=== PATIENT | male | born 1950 | race Caucasian/White ===

== ENCOUNTER 2017-08-08 14:03 | Emergency (ER) | payer OTHER ==
[~2017-08-08] VITALS: Ht 180.3 cm; Wt 124.7 kg
--- NOTE | ~2017-08-08 | EKG ---
[address] [place] [address] ELECTROCARDIOGRAM REPORT Name: IWONA BEST Room #: [facility] CHANCE Rahman#: [id number] Admission: 08/08/17 Attend Phys: Discharge: 08/08/17 Date of : 52 Report #: [id number] THIS REPORT FOR: //name// [facility] ED Test Date: 2017-08-08 Test Time: 14:14:50 Pat Name: IWONA BEST Department: Room: Gender: Oncology Specialist: [facility] : 1950 Requested By: Ángel Garcia Order Number: [id number] MD: Mark Anthony Leonardo Measurements Intervals [place] Rate: 74 P: [place]: QRS: 32 QRSD: 107 T: 38 QT: 365 QTc: 405 Interpretive Statements Atrial fibrillation RSR' in V1 or V2, right VCD No previous ECG available for comparison Electronically Signed On 08-09-2017 8:59:03 [employer]MIC[employer] OPERATOR by Mark Anthony Leonardo [email or web address] <ELECTRONICALLY SIGNED> By: Mark Anthony Leonardo MD, [facility] 08/09/17 0859 1414 1414 Mark Anthony Leonardo MD, FACC /EPI
[2017-08-08 14:46] LABS: ABSOLUTE NEUTROPHILS 4.1 thou/uL (1.4-8.2); BASOPHILS 0.5 % (0.0-2.0); EOSINOPHILS 1.9 % (0.0-3.0); HEMATOCRIT 40.1 % (42.0-52.0); HEMOGLOBIN 13.7 gm/dL (14.0-18.0); LYMPHOCYTES 21.5 % (24.0-44.0); MCH 34.7 pg (26.0-34.0); MCHC 34.2 g/dL (28.0-37.0); MCV 101.6 fL (80.0-100.0); MONOCYTES 7.5 % (1.0-8.0); PLATELET COUNT 160 thou/uL (150-400); POLYS 68.6 % (36.0-66.0); RBC 3.95 mil/uL (4.50-6.00); RDW 12.8 % (10.5-14.5); WBC 5.9 thou/uL (4.0-11.0)
[2017-08-08 14:55] LABS: ANION GAP 10 mmol/L (7-16); BUN 38 mg/dL (7-18); CALCIUM 8.8 mg/dL (8.5-10.1); CHLORIDE 105 mmol/L (98-107); CO2 21 mmol/L (21-32); CREATININE 2.4 mg/dL (0.7-1.3); GLUCOSE 122 mg/dL (74-106); POTASSIUM 5.1 mmol/L (3.5-5.1); SODIUM 136 mmol/L (136-145)
[2017-08-08 15:01] LABS: APTT 27.7 Seconds (24.5-32.8)
[2017-08-08 15:03] LABS: ALBUMIN 3.3 g/dL (3.4-5.0); SGOT 32 U/L (15-37); SGPT 56 U/L (30-65); TOTAL BILIRUBIN 0.2 mg/dL (<0.1-1.0); TOTAL PROTEIN 7.2 g/dL (6.4-8.2); TROPONIN-I < 0.04 ng/mL (<0.06)
[2017-08-08] MEDS ORDERED: ASPIRIN325 PO (15:11)
[2017-08-08] MEDS ORDERED: LASIX 20 MG TAB20 MG PO (15:12)
[2017-08-08] MEDS ORDERED: NORCO 5-325 TA1 EACH PO (15:12)
[2017-08-08] MEDS ORDERED: LISINOPRIL10 MG PO (15:12)
[2017-08-08] MEDS ORDERED: IBUPROFEN 800800 M1 PO (15:12)
[2017-08-08] MEDS ORDERED: MELATONIN3 MG PO (15:13)
[2017-08-08] MEDS ORDERED: LOPRESSOR100 M1 PO (15:13)
[2017-08-08] MEDS ORDERED: ATIVAN1 MG PO (15:13)
[2017-08-08] MEDS ORDERED: XARELTO20 MG PO ×2 (15:15→16:00)
[2017-08-08 15:16] LABS: D-DIMER 0.38 ug/mLFEU (0.19-0.50)
[2017-08-08] MEDS ORDERED: AMOXICILLIN 50500 M1 PO (15:35)
[2017-08-08] MEDS ORDERED: PREDNISONE 20 M20 MG PO (15:35)
[2017-08-08] MEDS ORDERED: VENTOLIN HFA 1818 GM INH (15:35)
== END 2017-08-08 16:16 | disposition home or self-care (01) ==
LOC: ER 14:03
PROVIDERS: Emergency Medicine
DX: J20.9 Acute bronchitis, unspecified (principal); J44.0 Chronic obstructive pulmonary disease with (acute) lower respiratory infection; N20.0 Calculus of kidney; N18.9 Chronic kidney disease, unspecified; J98.6 Disorders of diaphragm; Z88.8 Allergy status to other drugs, medicaments and biological substances; Z88.6 Allergy status to analgesic agent

== ENCOUNTER 2021-02-05 19:37 | Inpatient (IN) | payer OTHER ==
[~2021-02-05] VITALS: Ht 180.3 cm; Wt 98.7 kg
[~2021-02-05 19:37] MED LIST: AMOXICILLIN 50500 M1 PO; ASPIRIN325 PO; ATIVAN1 MG PO; IBUPROFEN 800800 M1 PO; LASIX 20 MG TAB20 MG PO; LISINOPRIL10 MG PO; LOPRESSOR100 M1 PO; MELATONIN3 MG PO; NORCO 5-325 TA1 EACH PO; PREDNISONE 20 M20 MG PO; VENTOLIN HFA 1818 GM INH; XARELTO20 MG PO
[2021-02-05 19:58] VITALS: BP 143/76
[2021-02-05] MEDS ORDERED: ALLOPURINOL 10100 M3 PO (20:47)
[2021-02-05] MEDS ORDERED: POTASSIUM CITR15 MEQ PO (20:48)
[2021-02-05] MEDS ORDERED: XARELTO20 MG PO (20:49)
[2021-02-05] MEDS ORDERED: VITAMIN D310 MC2 PO (20:50)
[2021-02-05] MEDS ORDERED: NORCO5 PO (20:50)
[2021-02-05] MEDS ORDERED: SENNA PLUS TAB1 EACH PO (20:50)
[2021-02-05] MEDS ORDERED: MELATONIN3 M1 PO (20:51)
[2021-02-05] MEDS ORDERED: TOPROL XL100 MG PO (20:51)
[2021-02-05 20:59] LABS: ABSOLUTE NEUTROPHILS 8.3 thou/uL (1.4-8.2); BASOPHILS 0.5 % (0.0-2.0); EOSINOPHILS 0.6 % (0.0-3.0); HEMATOCRIT 29.1 % (42.0-52.0); HEMOGLOBIN 9.9 gm/dL (14.0-18.0); LYMPHOCYTES 16.1 % (24.0-44.0); MCH 36.6 pg (26.0-34.0); MCHC 33.9 g/dL (28.0-37.0); MCV 107.8 fL (80.0-100.0); MONOCYTES 7.9 % (1.0-8.0); PLATELET COUNT 210 thou/uL (150-400); POLYS 74.9 % (36.0-66.0); RBC 2.69 mil/uL (4.50-6.00); RDW 13.5 % (10.5-14.5); WBC 11.1 thou/uL (4.0-11.0)
[2021-02-05 21:12] LABS: ANION GAP 6 mmol/L (7-16); BUN 64 mg/dL (7-18); CALCIUM 8.3 mg/dL (8.5-10.1); CHLORIDE 111 mmol/L (98-107); CO2 25 mmol/L (21-32); CREATININE 1.2 mg/dL (0.7-1.3); GLUCOSE 106 mg/dL (74-106); POTASSIUM 4.8 mmol/L (3.5-5.1); SODIUM 142 mmol/L (136-145)
[2021-02-05 21:22] LABS: TROPONIN-I <0.06 ng/mL (<0.06)
[2021-02-05 21:40] LABS: MACROCYTES 2+
[2021-02-05 21:41] LABS: POLYCHROMASIA SLIGHT
--- NOTE | 2021-02-06 07:31 | EKG ---
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
[2021-02-06 09:35] LABS: HEMATOCRIT 25.9 % (42.0-52.0); HEMOGLOBIN 8.7 gm/dL (14.0-18.0); MCH 36.7 pg (26.0-34.0); MCHC 33.6 g/dL (28.0-37.0); MCV 109.3 fL (80.0-100.0); RBC 2.37 mil/uL (4.50-6.00); WBC 8.2 thou/uL (4.0-11.0)
[2021-02-06 09:42] LABS: CALCIUM 8.3 mg/dL (8.5-10.1); CREATININE 1.2 mg/dL (0.7-1.3); OBSERVED RETIC COUNT 2.36 % (0.6-2.6); POTASSIUM 4.3 mmol/L (3.5-5.1)
[2021-02-06 09:46] LABS: % SATURATION 45 % (20-39); IRON 124 ug/dL (65-175); TIBC 273 ug/dL (250-450)
[2021-02-06 10:13] LABS: FOLIC ACID 18.3 ng/mL (8.6-58.9)
[2021-02-06 11:43] VITALS: BP 103/51
[2021-02-06 15:17] VITALS: BP 135/53
[2021-02-06 15:24] VITALS: BP 135/53
[2021-02-06] MEDS ORDERED: DULOXETINE HCL60 MG PO (15:37)
--- NOTE | 2021-02-06 17:37 | NUR ---
PATIENT ARRIVED TO UNIT AT APPROX 1530. PATIENT WAS ORIENTED TO ROOM AND GIVEN CALL LIGHT. PATIENT WAS OBSERVED WALKING FROM BED TO CHAIR WITH NO ISSUES. ADMISSION HX. AND EDUCATION COMPLETE. IV PROTONIX RESTARTED. PATIENT IS A&OX4 AND HAS AT BEDSIDE. ENDORSED TO CHARGE NURSE TO COMPLETE ADMISSIONS ASSESSMENT. PATIENT VOICED PAIN AND ASKED FOR TYLENOL. HOSPITALISTS CALLED BUT UNSUCCESSFULLY REACHED.
[2021-02-06 20:15] VITALS: BP 131/70
--- NOTE | 2021-02-07 05:21 | NUR ---
PT SLEPT MOST OF THE NIGHT WHILE ON HIS HOME CPAP. RESPIRATIONS EVEN AND UNLABORED. VSS. AFEBRILE. NO S/S BLEEDING NOTED. PAIN MEDICATION GIVEN FOR C/O BACK PAIN. UP AD DEJAH TO BTR WTIH STEADY GAIT. IVF INFUSING ORDERED. PROGRESSING TOWARD POC GOALS. WILL MONITOR FURTHER.
[2021-02-07 07:25] VITALS: BP 105/60
--- NOTE | 2021-02-07 08:39 | NUR ---
RD consulted, specific reason not specified. Admit with GIB. EGD showing hiatal hernia, with gastric ulcer. no further bleed. Started on pantoprazole and diet advancing with tolerance. BMI 30. Presents low nutrition risk
[2021-02-07 13:43] LABS: HEMATOCRIT 22.1 % (42.0-52.0); HEMOGLOBIN 7.5 gm/dL (14.0-18.0)
--- NOTE | 2021-02-07 16:54 | NUR ---
PT IS A&O*4, CONTINUE OXYGEN LEVEL MONITOR AT BEDSITE, IV FLUID NS@ 80ML/HR. STOOL SOFTNER GIVEN IN THE MORNING, EDUCATED PT FOR USING BEDSIDE COMMODE AND ASK NURSE TO ASSESS HIS STOOL COLOR AND FURTHER TEST MIGHT NEEDED. NO BM THIS SHIFT AND WILL PASS ALONG TO PV INSTALLER TECH. CHRONIC BACK PAIN RELIEFED BY ONE DOSE TYLENOL. GET UP BY DEJAH. NSR ON TELE. Hgb 7.5 TODAY. WILL KEEP MONITOR PATIENT'S VS, LAB AND SAFETY UNTIL SHIFT CHANGE.
[2021-02-07 19:31] VITALS: BP 111/56
[2021-02-08] VITALS (9 sets, daily range): BP systolic 100–143; BP diastolic 52–67
[2021-02-08 03:17] LABS: MCV 108.9 fL (80.0-100.0)
[2021-02-08 03:20] LABS: MCH 38.3 pg (26.0-34.0); MCHC 35.2 g/dL (28.0-37.0); RBC 1.68 mil/uL (4.50-6.00); RDW 13.6 % (10.5-14.5); WBC 5.4 thou/uL (4.0-11.0)
[2021-02-08 03:29] LABS: HEMATOCRIT 18.3 % (42.0-52.0); HEMOGLOBIN 6.4 gm/dL (14.0-18.0)
[2021-02-08 03:42] LABS: ALBUMIN 2.1 g/dL (3.4-5.0); CALCIUM 6.8 mg/dL (8.5-10.1); CREATININE 1.3 mg/dL (0.7-1.3); POTASSIUM 3.3 mmol/L (3.5-5.1); TOTAL BILIRUBIN 0.2 mg/dL (0.2-1.0); TOTAL PROTEIN 4.3 g/dL (6.4-8.2)
--- NOTE | 2021-02-08 04:47 | NUR ---
ASSUMED PT CARE AT 1920. PT IS ALERT AND ORIENTED X4. PT IS A SBA TO THE BR. BP MEDS HELD BECAUSE BP WAS LOW. PT HAS A HEALING FRACTURE TO THE R ARM. PT HAS A MASS AND REDNESS TO THE BACK. PT HGB WAS 7.5 AT THE BEGINNING OF THE SHIFT BUT DROPPED TO 6.4. THE [employer] WAS NOTIFIED AND AN ORDER FOR 1UNIT OF PRBC WAS OBTAINED. PT WAS EDUCATED ON THE NEED FOR BLOOD TRANSFUSION AND CONSENT FORMS WAS SIGNED. PT DENIED ANY FORM OF DIZZINESS OR LIGHT HEADEDNESS. PT WAS RE-EDUCARED ON THE NEED TO USE CALL LIGHT FOR ASSISTAMCE TO THE BR. FALL PREACAUTIONS IN PLACE WITH CALL LIGHT WITHIN REACH. WILL CONTINUE TO MONITOR.
--- NOTE | 2021-02-08 09:21 | PATH ---
[facility] [address] [place] [address] PATHOLOGY RPT PROCEDURE Name: TK BEST Jessica Room #: 459-P ADM IN M.R.#: [id number] Admission: 02/05/21 Date of : 52 Discharge: Report #: [id number] Path Case #: [id number] L[facility] Accession Number: [id number] . 01 Material submitted: . ANTRUM - ANTRUM BX FOR H. PYLORI . 01 Clinical history: . EGD MELENA GASTRIC ULCER, HIATAL HERNIA . 02 Diagnosis: Gastric mucosa, antrum for H. pylori, endoscopic biopsy: - Mild reactive gastropathy. - Negative for intestinal metaplasia or atrophy. - Negative for Helicobacter pylori (properly controlled immunohistochemical stain performed). (IUV:pit; 02/07/2021) QTP 02/07/2021 1302 Local . 02 Electronically signed: . Jessica Campos MD, Pathologist NPI- [id number] . 01 Gross description: . The specimen is received in formalin, labeled "Mindy Tk and antrum BX" and per the requisition "antrum BX for H. pylori". It consists of a blair irregular soft tissue fragment measuring 0.5 x 0.3 x 0.2 cm. The specimen is entirely submitted between [facility] [place] . (MRF; 02/06/2021) MFE/MFE 02/06/2021 [facility]3 Local . 02 Pathologist provided ICD-10: K31.9 . 02 CPT . 829884, E49763 Specimen Comment: A courtesy copy of this report has been sent to [phone] Specimen Comment: 2007 Specimen Comment: Report sent to / DR BATISTA Specimen Comment: A duplicate report has been generated due to demographic updates. Performed at: [id number] [facility] [address], [place], [place] [id number] [address] [address] [place] [address] PATHOLOGY RPT PROCEDURE Name: MINDYTK GALAN Room #: 459-P ADM IN M.R.#: [id number] Admission: 02/05/21 Date of : 52 Discharge: Report #: [id number] Path Case #: [id number] MD Dionte Rincon MD Phone: [phone] Performed at: [address] [address] [place], [place] [id number] MD Jessica Campos MD Phone: [phone]
--- NOTE | 2021-02-08 14:26 | NUR ---
ORDERS RECEIVED FOR EVAL AND TREAT. Pt JUST COMPLETED SEEING O.T. AND WALKED TO THE BATHROOM WITHOUT DIFFICULTY. O.T. SIGNING OFF ON HIM. Pt STATES HE DOES NOT FEEL WEAK OR OFF BALANCE AND FEELS SAFE WITH MOBILITY. Pt DECLINING A FORMAL P.T. EVAL BUT SOUNDS LIKE HE WOULD BE SAFE FOR HOME WHEN MEDICALLY CLEAR
[2021-02-08 15:50] LABS: HEMATOCRIT 24.7 % (42.0-52.0)
[2021-02-08 15:51] LABS: HEMOGLOBIN 8.4 gm/dL (14.0-18.0)
--- NOTE | 2021-02-08 18:42 | NUR ---
PT IS A&O*4, ROOM AIR, 1L OXYGEN FOR CPAP DRUING SLEEP AT NIGHT, REPORT HEADACHE AND RESOLVED BY ONE DOSE TYLENOL. GET UP BY LIP AND GO TO BATHROOM IN THE ROOM INDEPEDNETLY. SCD IS ON AND BEDSIDE OXYGEN MONITOR FOR CPAP. I UNIT BLOOD GIVEN AND HGB INCREASE FORM 6.4 TO 8.4. HAD ONE LARGE BM IN BLACK COLOR. ENDOSCOPY SCHEDULED ON SATURDAY AND PT WILL BE ON FULL LIUID DIET TOMORROW.
[2021-02-09 01:11] VITALS: BP 137/70
--- NOTE | 2021-02-09 01:46 | NUR ---
ASSUMED PT CARE 191. PT IS ALERT AND ORIENTED X4. PT DENIES SOB WHEN USING THE BR WITHOUT O2. PT ALSO DENIES ANY FORM OF DIZZINESS AND LIGHT HEADEDNESS. PT IS UP AD DEJAH AND ONLY CALLS FOR ASSISTANCE WITH IV PUMP. VITALS SIGNS ARE WITHIN NORMAL RANGE. PT'S BACK AND NECK PAIN BEING MANAGED BY PRN MED. MEDS GIVEN PER EMAR ORDERS. FALL PREACAUTIONS IN PLACE WITH CALL LIGHT WITHIN REACH. WILL CONTINUE TO MONITOR.
[2021-02-09 05:49] LABS: HEMATOCRIT 23.1 % (42.0-52.0); HEMOGLOBIN 8.1 gm/dL (14.0-18.0); MCH 36.8 pg (26.0-34.0); MCHC 34.9 g/dL (28.0-37.0); MCV 105.5 fL (80.0-100.0); RBC 2.19 mil/uL (4.50-6.00); RDW 14.1 % (10.5-14.5); WBC 4.8 thou/uL (4.0-11.0)
[2021-02-09 06:19] LABS: ALBUMIN 2.6 g/dL (3.4-5.0); CALCIUM 7.7 mg/dL (8.5-10.1); CREATININE 1.1 mg/dL (0.7-1.3); POTASSIUM 3.7 mmol/L (3.5-5.1); TOTAL BILIRUBIN 0.6 mg/dL (0.2-1.0); TOTAL PROTEIN 5.1 g/dL (6.4-8.2)
[2021-02-09 07:50] VITALS: BP 115/61
--- NOTE | 2021-02-09 10:33 | NUR ---
ASSUMED PT CARE THIS AM. PT IS ALERT & ORIENTED X4. PT HAS IV SITE ON L HAND. PT IS UP AD DEJAH BUT NEED 02 WHILE WALKING. PT HGB IS 8.1 THIS AM. PT USES CPAP AT NIGHT AND RA IN DAY. PT C/O OF PAIN THIS AM AND GIVEN PAIN MEDICATION PER PT ORDERED. WILL HAVE BOWEL PREP THIS AFTERNOON AND COLONOSCOPY JANY. WILL CONTINUE TO MONITOR PT. FOLLOW POC.
--- NOTE | 2021-02-09 14:50 | NUR ---
PT ADMITTED RELATED TO GI BLEED. CM REVIEWED CHART AND SPOKE WITH CARE TEAM. CM MET WITH PT AND SPOUSE AT BEDSIDE THIS DAY. PT APPEARED TO BE A&O X4. CM ROLE INTRODUCED. PT INDICATED HE RESIDES IN A HOUSE WITH IS WITH 5 STEPS TO ENTER AND NO STEPS HE USES INSIDE. 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 PT INDICATED HE HAS A CPAP AND HOME O2. PT USES 2L WITH ACTIVITY AND 1L WITH CPAP NOC. PT INDICATED PCP IS DR. LARSON. PT INDICATED HE PLANS TO RETURN HOME ONCE MEDICALLY STABLE. PT TO HAVE COLONOSCOPY TOMORROW SATURDAY. CM FOLLOWING SHOULD ANY DC NEEDS ARISE.
[2021-02-09 15:15] VITALS: BP 104/59
[2021-02-09 20:07] VITALS: BP 136/49
--- NOTE | 2021-02-10 02:54 | NUR ---
PT CARE ASSUMED WITH PT IN BED WATCHING TV AND FINISHING GOLMATIvisionLY.PT IS A/O X4.PT IS UP AD DEJAH AND EDUCATED TO CALL FOR HELP.PT NPO FROM MIDNIGHT FOR COLONOSCOPY TODAY.PT REPORT ONE STOOL WITH BLOOD IN IT.PT ON ROOM AIR AND USES CPAP AT NIGHT.PT IV ACCESS ON LT FA WITH NS AT 80CC/HR.PT C/O BACK PAIN AND HEADACHE AND PAIN MANAGED WITH NORCO AND TYLENOL PRN.WILL CONTINUE TO MONITOR PER POC
--- NOTE | 2021-02-10 10:04 | NUR ---
Capsule Endoscopy Initiated at 0945 post Colonoscopy. Written Consent obtained via pt's and Pill cam swallowed. Transducer and belt in place. Reglan 10mg and Simethicone 80 mg given po prior to procedure. Written and verbal instructions given. Written instructions for Npo x 2 hrs, then cl x 2 hrs, then light meal and meds after 4 hrs. Instructed to view recorder periodically to make sure still blinking and recording, and to call if stops blinking prior to 4-5 hrs. Informed I will be up to take recorder off later today at the end of the study. Voices comprehension of all above.
[2021-02-10 10:17] VITALS: BP 154/74
[2021-02-10] MEDS ORDERED: PROTONIX40 M2 PO (12:56)
[2021-02-10] MEDS ORDERED: CARAFATE 11 GM/10 M1 PO (12:56)
--- NOTE | 2021-02-10 14:25 | NUR ---
ASSUMED CARE OF PATIENT AT SHIFT CHANGE. ASSESSMENT CHARTED. MEDICATIONS ADMINISTERED PER EMAR. VSS. PATIENT IS A&OX4 AND IS UP ADLIB WITH STEADY GAIT. PATIENT WENT DOWN FOR A COLONOSCOPY THIS MORNING AT APPROX. 0730 AND RETURNED AT 1015. PATIENT SWALLOWED A CAMERA PILL AND WAS EDUCATED BY GI TEAM ON WHAT DIET WOULD BE DURING THE STUDY. STUDY WOULD LAST UNTIL APPROX 1745 HOWEVER PATIENT WAS NOTIFIED OF POTENTENTIAL DISCHARGE AROUND THIS TIME. DISCHARGE ORDERS ARE IN AND PRESCRIPTIONS ARE PRINTED. PATIENT IS TOLERATING DIET WELL; ADVANCING TOLERATED. SR ON TELEMETRY AND NO ISSUES. PATIENT IS MAKING STEADY PROGRESS; HGB NOW 10.1 FROM 8.1 YESTERDAY. WILL CONTINUE TO MONITOR UNTIL DISCHARGE
[2021-02-10 15:01] VITALS: BP 154/74
--- NOTE | 2021-02-10 15:07 | NUR ---
PT HAD COLONOSCOY THIS DAY AND HAS PILL CAM ADMINISTERED THIS AM. CARE TEAM ARE INDICATING THAT PT WILL BE MEDICALLY STABLE TO DC HOME THIS DAY. WAITING ON GI TO SPEAK WITH HIM AND SPOUSE ABOUT THE PILL CAM. PT WILL DC HOME TO SELF CARE. PT HAS ALL NEEDED DME. NO OTHER CM INTERVENTION INDICATED. CASE CLOSED.
[2021-02-10 18:13] VITALS: BP 154/74
--- NOTE | 2021-02-10 19:59 | NUR ---
PATIENT TOOK OFF BELT PROVIDED BY GI AND LEFT IT AT NURSES STATION TO BE PICKED UP ON Saturday02/13/21.
--- NOTE | 2021-02-10 20:05 | NUR ---
AGREE W/ AM ASSESSMENT PER LEVELMAN
--- NOTE | 2021-02-11 10:08 | P ---
[facility] [place] [address] [address] [place] [address] PROCEDURE REPORT Name: IWONA BSET Room #: 459-P [facility] IN ..#: [id number] Admission: 02/05/21 Attend Phys: Brian Heck MD Discharge: 02/10/21 Date of : 52 Report #: [id number] THIS REPORT FOR: cc: FAM - Family physician unknown FAM - Family physician unknown Dima Ruvalcaba MD ~ cc: Fide Márquez MD, Jayme Flaherty MD DATE OF SERVICE: 02/10/2021 PROCEDURE PERFORMED: Colonoscopy with biopsies. HISTORY OF PRESENT ILLNESS: The patient is a 70-year-old male who was admitted with shortness of breath, lightheadedness, recent dark stools. He was on Xarelto for history of AFib. Admit hemoglobin was 9.9, dropped to 6.4. He has undergone 1 transfusion. Last hemoglobin yesterday was 8.1. He underwent an upper endoscopy by Dr. Flaherty on Saturday showing small hiatal hernia, gastric linear ulcer in the antrum, no stigmata of bleeding. He has been on PPI therapy. Plan is for colonoscopy. DESCRIPTION OF PROCEDURE: The risks and benefits of the procedure were explained to the patient, those risks including but not limited to bleeding, perforation and the risk of sedation. He understood these risks and gave informed consent. Sedation was given using propofol per Anesthesia. Next, a digital rectal exam was initially performed, which was normal. Next, using a standard Olympus colonoscope, the scope was placed in the patient's anus and advanced under direct vision to the cecum. The overall prep was good. The cecum and ileocecal valve were normal in appearance. Terminal ileum was intubated and normal in appearance. In the ascending colon, two 3 mm sessile polyps were noted, both removed with cold forceps. Transverse colon was normal. Multiple diverticula were noted in the descending and sigmoid colon. No stigmata of bleeding. In the rectum, there was a 4 mm sessile polyp. This was also removed with cold forceps. On retroflexion, small nonbleeding internal hemorrhoids were noted. The scope was then withdrawn and the procedure terminated. The patient tolerated the procedure well. IMPRESSION: 1. Three small colonic polyps. 2. Left-sided diverticulosis. No signs of bleeding. 3. Small internal hemorrhoids, nonbleeding. 4. Otherwise, normal colonoscopy. RECOMMENDATIONS: 1. Await biopsy results. 2. Repeat colonoscopy in 5 years. 3. We will discuss possible M2 capsule. [address] [address] PROCEDURE REPORT Name: IWONA BEST Jessica Room #: 459-P [facility] IN M.R.#: [id number] Admission: 02/05/21 Attend Phys: Brian Heck MD Discharge: 02/10/21 Date of : 52 Report #: [id number] Thank you for allowing me to participate in his care. <ELECTRONICALLY SIGNED> By: Dima Ruvalcaba MD 02/11/21 1008 0755 0824 Dima Ruvalcaba MD /nt
--- NOTE | 2021-02-13 18:06 | PATH ---
[facility] [place] [address] [address] PATHOLOGY RPT PROCEDURE Name: TK GUILLEN Jessica Room #: 459-P DIS IN M.R.#: [id number] Admission: 02/05/21 Date of : 52 Discharge: 02/10/21 Report #: [id number] Path Case #: [id number] LCA Accession Number: [id number] . 01 Material submitted: . PART A: colon - ASCENDING COLON POLYPS. Modifiers: ascending PART B: rectum - RECTAL POLYP . 01 Clinical history: . COLONOSCOPY GI BLEED/DIVERTICULOSIS/COLON POLYP . 02 Diagnosis: A. Polyps, ascending colon polyps, endoscopic biopsy: - One fragment showing tubular adenoma without high-grade dysplasia. - Remainder of fragments showing hyperplastic polyp with a lymphoid aggregate; negative for dysplasia. . B. Polyp, rectal polyp, endoscopic biopsy: - Tubular adenoma. - Negative for high-grade dysplasia. (IUV:scotty; 02/13/2021) QMS 02/13/2021 1254 Local . 02 Electronically signed: . Jessica Campos MD, Pathologist NPI- [id number] . 01 Gross description: . A. The specimen is submitted in formalin, labeled "Tk Guillen, ascending colon". Received is fecal material admixed with multiple segments of pale blair tissue measuring 1.3 x 0.6 x 0.1 cm in aggregate dimensions. The specimen is filtered and submitted in cassette A1. . B. The specimen is submitted in formalin, labeled "Tk Guillen, rectal polyp". Received are 2 segments of pale blair tissue ranging in size from 0.2 to 0.3 cm in maximum dimensions. The specimen is submitted in cassette B1. ([facility]; 02/10/2021) NRI/NRI 02/10/2021 1710 Local . 02 Pathologist provided ICD-10: D12.2, K63.5, D12.8 . 02 CPT . 745793, 461924 Specimen Comment: A courtesy copy of this report has been sent to [phone], [place] [address] PATHOLOGY RPT PROCEDURE Name: TK GUILLEN Jessica Room #: 459-P DIS IN M.R.#: [id number] Admission: 02/05/21 Date of : 52 Discharge: 02/10/21 Report #: [id number] Path Case #: [id number] Specimen Comment: [id number], Specimen Comment: Report sent to , DR PHAM / DR JENKINS Performed at: [address], [place], [place] [id number] MD Dionte Rincon MD Phone: [phone] Performed at: [address] [id number] MD Jessica Campos MD Phone: [phone]
== END 2021-02-10 18:58 | disposition home or self-care (01) | DRG 377 ==
LOC: ER 19:37 → 4W 21:54 → EROBS 21:54 → 4W 02-06 15:00
PROVIDERS: Hospitalist; Nurse Practitioner; Nurse Practitioner Family; ADMIT Hospitalist; ATTEND Hospitalist
DX: K25.4 Chronic or unspecified gastric ulcer with hemorrhage (principal); E43 Unspecified severe protein-calorie malnutrition; K57.31 Diverticulosis of large intestine without perforation or abscess with bleeding; N18.30 Chronic kidney disease, stage 3 unspecified; I48.91 Unspecified atrial fibrillation; D12.7 Benign neoplasm of rectosigmoid junction; K64.8 Other hemorrhoids; D12.2 Benign neoplasm of ascending colon; F41.9 Anxiety disorder, unspecified; G89.4 Chronic pain syndrome; M54.9 Dorsalgia, unspecified; I12.9 Hypertensive chronic kidney disease with stage 1 through stage 4 chronic kidney disease, or unspecified chronic kidney disease; K44.9 Diaphragmatic hernia without obstruction or gangrene; G47.00 Insomnia, unspecified; Z86.010 Personal history of colon polyps; Z82.5 Family history of asthma and other chronic lower respiratory diseases; Z83.3 Family history of diabetes mellitus; Z81.8 Family history of other mental and behavioral disorders; Z82.49 Family history of ischemic heart disease and other diseases of the circulatory system; Z87.442 Personal history of urinary calculi; Z88.6 Allergy status to analgesic agent; Z88.8 Allergy status to other drugs, medicaments and biological substances; Z20.822 Contact with and (suspected) exposure to COVID-19
CPT/HCPCS: 10045; 62110; 62900; 70005